=== PATIENT | male | born 1990 | race Caucasian/White ===

== ENCOUNTER 2020-11-02 16:32 | Emergency (ER) | payer BC, SELFPAY ==
--- NOTE | 2020-11-02 16:40 | ED.DIZZY ---
HPI - Dizziness General Chief Complaint: Dizziness Stated Complaint: dizzy Time Seen by Provider: 11/02/20 16:40 History of Present Illness HPI Narrative: Patient is a 29-year-old male who presents the urgent care with complaints of dizziness that started early this morning. Patient states that his last dose of tramadol after getting his wisdom teeth pulled on was yesterday afternoon. Patient states that he just thought it was a reaction to the tramadol however when it did not go away this afternoon he decided to get evaluated. Patient denies of any shortness of breath, chest pain, nausea, vomiting. Patient states he is had approximately 72 ounces of water today as well as protein shakes, mashed potatoes and a couple slices of cake this afternoon. Patient denies of any heavy bleeding from the surgical wisdom teeth removal. Denies of any fevers. No other acute complaints. No acute distress noted. Patient aware of the plan of care. Some parts of this dictation were generated by voice recognition software and may contain typographical and/or grammatical inaccuracies. Related Data Home Medications Medication Instructions Recorded Confirmed No Home Medications 11/02/20 11/02/20 Allergies Allergy/AdvReac Type Severity Reaction Status Date / Time hydrocortisone Allergy Redness of Verified 11/02/20 16:47 Skin Penicillins Allergy Hives Verified 11/02/20 16:47 Sulfa (Sulfonamide Allergy Hives Verified 11/02/20 16:47 Antibiotics) Review of Systems Review of Systems: Narrative: CONSTITUTIONAL: Denies fever, chills, or sweats. EYES: Denies visual changes, redness, or discharge. ENT: Denies rhinorrhea, congestion, sore throat, or otalgia. CARDIOVASCULAR: Denies chest pain, palpitations, or edema. RESPIRATORY: Denies cough or dyspnea. GASTROINTESTINAL: Denies abdominal pain, nausea, vomiting, or diarrhea. GENITOURINARY: Denies dysuria or hematuria. SKIN: Denies rash or itching. MUSCULOSKELETAL: Denies back pain, joint pain, or myalgia. NEUROLOGIC: Denies headache, numbness, or weakness. Reports of dizziness feeling like he is spinning All other systems reviewed are negative, except as documented in HPI. PMFSH Comments At the time of my signature, I reviewed and agree with the nursing past medical, surgical, social, and family history. There is no relevant family history pertinent to the patient complaint. Exam Narrative: Exam Narrative: GENERAL: This is a well-nourished, well-developed patient, in no apparent distress. HEAD: normocephalic, atraumatic. EYES: PERRL. Sclera clear/white. Vision is grossly intact. EARS: External ears normal, auditory canals clear and without drainage, TMs normal without perforation. Hearing grossly intact. NOSE: External nose normal with no obvious nasal discharge, nares without redness, no rhinorrhea. THROAT: Mucous membranes moist, posterior pharynx clear. NECK: Neck supple, non-tender without lymphadenopathy, masses or thyromegaly. CARDIOVASCULAR: Regular rate and rhythm without murmurs, gallops, or rubs. RESPIRATORY: Clear to auscultation. Breath sounds equal bilaterally. No wheezes, rales, or rhonchi. SKIN: warm, intact with no suspicious lesions or rash, good texture and turgor. NEURO: awake, alert, and oriented to person, place and time. There were no obvious focal neurologic abnormalities. EXTREMITIES: No clubbing, cyanosis, or edema. Course Vital Signs Vital signs: Vital Signs Temperature 98.1 F 11/02/20 16:41 Pulse Rate 63 11/02/20 16:41 Respiratory Rate 12 11/02/20 16:41 Blood Pressure 144/74 H 11/02/20 16:41 Pulse Oximetry 100 11/02/20 16:41 Temperature 98.1 F 11/02/20 16:41 Pulse Rate 56 L 11/02/20 17:03 Respiratory Rate 12 11/02/20 16:41 Blood Pressure 146/63 H 11/02/20 17:03 Pulse Oximetry 100 11/02/20 16:41 Reviewed?patient is informed that they may have pre-hypertension or hypertension based on a blood pressure readi
[2020-11-02 16:41] VITALS: BP 144/74; PULSE 63; RESP 12; TEMP 36.7; O2SAT 100
[2020-11-02 16:51] LABS: Glucose Point of Care 84 mg/dl (65-105)
--- NOTE | 2020-11-02 16:59 | ECG_ITS ---
Measurements Intervals [place] Rate: 60 P: 56 [place]: 198 QRS: 90 QRSD: 121 T: -15 QT: 394 QTc: 396 Interpretive Statements SINUS RHYTHM RIGHT BUNDLE BRANCH BLOCK MINIMAL Q WAVES- INFERIOR LEADS PEAKED T WAVES- CONSIDER HYPERKALEMIA OR ISCHEMIA BORDERLINE ST-T WAVE ABNORMALITY- INFERIOR LEADS BASELINE ARTIFACT- I, II, III, AVR, AVL ABNORMAL ECG Electronically Signed On 11-02-2020 21:54:05 CDT by Karl Su D.O.
[2020-11-02 17:00] VITALS: BP 124/65; PULSE 51
[2020-11-02 17:02] VITALS: BP 146/71; PULSE 51
[2020-11-02 17:03] VITALS: BP 146/63; PULSE 56
== END 2020-11-02 17:20 | disposition short-term general hospital (02) ==
PROVIDERS: Emergency Provider Nurse Practitioner Family
DX: R42 Dizziness and giddiness (principal); I45.10 Unspecified right bundle-branch block; R94.31 Abnormal electrocardiogram [ECG] [EKG]
CPT/HCPCS: 82948; 93005; 99213; G0463

== ENCOUNTER 2020-11-02 17:47 | Emergency (ER) | payer BC, SELFPAY ==
[2020-11-02] VITALS (7 sets, daily range): BP systolic 127–160; BP diastolic 57–88; PULSE 63–101; RESP 17–20; TEMP 36.4–36.8; O2SAT 97–100
--- NOTE | ~2020-11-02 | CT_ITS ---
EXAMINATION: CT brain wo con DATE: 11/02/2020 19:50 INDICATION: Dizziness. Nausea. TECHNIQUE: Computed tomography (CT) of the head was performed without intravenous contrast. The mA wa s adjusted according to patient size. Iterative reconstruction technique was employed. Exam dose: 60 5.33 mGy-cm total exam DLP. COMPARISON: None FINDINGS: No intracranial mass lesion or hemorrhage or cerebrovascular accident is evident. There is no midline shift or mass effect effect. Normal ventricular size. Normal estrada-white matter differentia tion. No subdural or epidural hematoma is detected. No fracture or bone destruction of the cranial vault. The mastoid air cells and included paranasal si nuses are normally developed and aerated. IMPRESSION: Negative Reviewed, dictated and finalized at [facility] Reviewed, dictated and finalized at [facility] IMPRESSION: Negative
--- NOTE | 2020-11-02 17:53 | ECG_ITS ---
Measurements Intervals [place] Rate: 46 P: 46 IA: 213 QRS: 87 QRSD: 114 T: -12 QT: 425 QTc: 375 Interpretive Statements SINUS BRADYCARDIA WITH FIRST DEGREE AV BLOCK INCOMPLETE RIGHT BUNDLE BRANCH BLOCK MINIMAL Q WAVES- INFERIOR LEADS PEAKED T WAVES- CONSIDER HYPERKALEMIA OR ISCHEMIA ST-T WAVE ABNORMALITY IN INFERIOR LEADS- CONSIDER ISCHEMIA BASELINE ARTIFACT- V1 ABNORMAL ECG Electronically Signed On 11-03-2020 8:13:30 CDT by Karl Su D.O.
[2020-11-02 18:13] LABS: Basophils Percent Auto 0.6 % (0.2-1.2); Eosinophils Absolute Auto 0.1 K/mm3 (0-0.3); Eosinophils Percent Auto 2.7 % (0-4.4); Hematocrit 46.5 % (42.0-52.0); Hemoglobin 16.2 g/dL (14.0-18.0); Immature Granulocyte Absolute 0.01 K/mm3 (0.00-0.031); Immature Granulocyte Percent A 0.2 % (0-0.5); Lymphocytes Percent Auto 30.9 % (18.3-44.2); Mean Corpuscular HGB Conc 34.8 g/dl (32-36); Mean Corpuscular Hemoglobin 29.5 pg (26-34); Mean Corpuscular Volume 84.7 fl (80-100); Mean Platelet Volume 9.4 fl (7.4-10.4); Monocytes Absolute Auto 0.6 K/mm3 (0.1-0.6); Neutrophils Absolute Auto 2.8 K/mm3 (1.3-6.7); Neutrophils Percent Auto 54.6 % (45.5-73.1); Platelet Count Result 276 k/mm3 (150-375); Red Blood Count 5.49 M/mm3 (4.6-6.20); Red Cell Distribution Width 11.9 % (11.5-14.5); White Blood Count 5.2 K/mm3 (4.5-10.0)
[2020-11-02 18:24] LABS: Anion Gap 8 mmol/L (8-16); Blood Urea Nitrogen 17 mg/dL (9-20); Calcium 9.7 mg/dL (8.4-10.2); Carbon Dioxide 31 mmol/L (22-30); Chloride 100 mmol/L (98-107); Estimated CRCL calculation 103 ml/min; Estimated Glomerular Filt Rate > 60; Glucose 121 mg/dL (75-110); Potassium 4.3 mmol/L (3.4-5.0); Sodium 139 mmol/L (137-145)
--- NOTE | 2020-11-02 19:32 | ED.GENADULT ---
HPI - General Adult General Chief complaint: Dizziness Stated complaint: DIZZINESS X1D Time Seen by Provider: 11/02/20 19:11 Source: patient History of Present Illness HPI narrative: Patient is 29 y/o male complaining of mild to moderate dizziness when he woke up around 5:30 AM this morning. There is no alleviating or exacerbating factor. He has some nausea, but no vomiting. He feels unsteady sometimes, but he is able to walk unassisted. He was on Tramadol following recent wisdom tooth extraction. Related Data Allergies Allergy/AdvReac Type Severity Reaction Status Date / Time hydrocortisone Allergy Redness of Verified 11/02/20 16:47 Skin Penicillins Allergy Hives Verified 11/02/20 16:47 Sulfa (Sulfonamide Allergy Hives Verified 11/02/20 16:47 Antibiotics) Review of Systems Constitutional: Constitutional: Denies chills, Denies fever(s), Denies headache(s) and Denies weakness Eyes: Eyes: Denies blurry vision ENT: Denies headache(s) and Denies neck pain Cardiovascular: Cardiovascular: Denies chest pain and Denies dyspnea Respiratory: Respiratory: Denies cough and Denies dyspnea Gastrointestinal: Gastrointestinal: Denies abdominal pain, Denies diarrhea, Denies nausea and Denies vomiting Genitourinary: Genitourinary: Denies hematuria and Denies dysuria Musculoskeletal: Musculoskeletal: Denies back pain and Denies neck pain Neurologic: Reports dizziness, Denies headache(s) and Denies weakness [facility] Social History Social History Gender identity (if verbalized by the patient): Male Exam Const: General: no acute distress and well developed Orientation/consciousness: oriented to person, oriented to place, oriented to time and patient oriented x3 HENMT: Head: normocephalic Ears: external ears normal General nose exam: Normal external nose present Eyes: General: appearance normal, both eyes and all related structures Conjunctivae: conjunctivae normal Neck: Neck: normal visual inspection and full ROM Chest: Chest palpation & inspection: normal inspection of the chest and no tenderness Resp: Effort & Inspection: normal respiratory effort Auscultation: clear to auscultation bilaterally Cardio: Rate: regular rate Rhythm: regular rhythm GI: GI Palp: No abdominal tenderness and Yes Soft to palpation Skin: General skin exam: normal color and turgor normal Neuro: General: oriented to person, oriented to place, oriented to time and patient oriented x3 Cranial nerves: Yes CN's II-XII intact bilaterally Cognition (Neuro): normal cognition Speech: normal speech Motor exam (neuro): 5/5 motor strength present throughout Sensory Exam: normal sensation Coordination: [id number] test normal and [id number] test normal Extrem: General: normal to inspection, full ROM and no pedal edema Psych: Appearance: grossly normal Mental Status: mental status grossly normal Affect: normal affect Course Vital Signs Vital signs: Vital Signs Temperature 36.4 C L 11/02/20 17:58 Pulse Rate 63 11/02/20 17:58 Respiratory Rate 17 11/02/20 17:58 Blood Pressure 160/67 H 11/02/20 17:58 Pulse Oximetry 98 11/02/20 17:58 Temperature 36.8 C 11/02/20 19:42 Pulse Rate 68 11/02/20 21:35 Respiratory Rate 20 11/02/20 21:35 Blood Pressure 127/88 11/02/20 21:35 Pulse Oximetry 97 11/02/20 21:35 Medical Decision Making Vital Signs Vital Signs: Vital Signs Temperature 36.4 C L 11/02/20 17:58 Pulse Rate 63 11/02/20 17:58 Respiratory Rate 17 11/02/20 17:58 Blood Pressure 160/67 H 11/02/20 17:58 Pulse Oximetry 98 11/02/20 17:58 Temperature 36.8 C 11/02/20 19:42 Pulse Rate 68 11/02/20 21:35 Respiratory Rate 20 11/02/20 21:35 Blood Pressure 127/88 11/02/20 21:35 Pulse Oximetry 97 11/02/20 21:35 Lab Data Result diagrams: 11/02/20 18:07 11/02/20 18:07 Labs: Lab Results
--- NOTE | 2020-11-02 19:42 | PC.NURSE ---
Assumed care of pt. at this time. Report from Lynn.
[2020-11-02] MEDS: MECLIZINE HCL 25 MG TABLET PO (21:00)
[2020-11-02 21:15] LABS: Troponin I < 0.012 ng/mL (0.000-0.034)
== END 2020-11-02 21:35 | disposition home or self-care (01) ==
PROVIDERS: Emergency Medicine; Emergency Provider Emergency Medicine
DX: R42 Dizziness and giddiness (principal); R00.1 Bradycardia, unspecified; I44.0 Atrioventricular block, first degree; R94.31 Abnormal electrocardiogram [ECG] [EKG]
CPT/HCPCS: 36415; 70450; 80048; 84484; 85025; 93005; 99284; A9270